=== PATIENT | female | born 1990 | race Caucasian/White ===

== ENCOUNTER 2024-04-08 21:05 | Inpatient (IN) | payer BC, MEDICARE ==
[~2024-04-08] VITALS: Ht 167.6 cm; Wt 83.5 kg
[2024-04-08 21:16] VITALS: O2SAT 98
[2024-04-08] MEDS: ACETAMINOPHEN 1000MG/100ML 100 ML IV ONE (22:15)
[2024-04-08 23:14] LABS: HEMOGLOBIN. 11.5 g/dL (12.0-16.0); MEAN CORPUSCULAR HEMOGLOBIN 29.7 pg (28.0-32.0); MEAN CORPUSCULAR HGB CONC 33.8 g/dL (31.0-37.0); MEAN CORPUSCULAR VOLUME 87.9 fL (81.0-99.0); MEAN PLATELET VOLUME 6.1 fl (7.4-10.4); PLATELET 422 x1000/uL (130-400); RED BLOOD CELL COUNT 3.86 mill/uL (4.2-5.4); RED CELL DISTRIBUTION WIDTH 16.7 % (11.6-14.6)
[2024-04-08 23:17] LABS: CHLORIDE 113 mEq/L (98-107); SODIUM 141 mEq/L (136-145)
[2024-04-08 23:18] LABS: CARBON DIOXIDE 21 mEq/L (21-32)
[2024-04-08 23:19] LABS: CALCIUM 7.7 mg/dL (8.7-10.4)
[2024-04-08 23:21] LABS: DIFFERENTIAL COMMENT 1
[2024-04-08 23:23] LABS: CREATININE 0.5 mg/dL (0.6-1.0); GLUCOSE 231 mg/dL (70-105); HCG SCREEN NEGATIVE
[2024-04-08 23:24] LABS: UREA NITROGEN BLOOD 6 mg/dL (9-23)
[2024-04-08 23:32] LABS: ANISOCYTOSIS 1+; PLATELET ESTIMATE INCREASED
[2024-04-08 23:39] LABS: POTASSIUM 2.8 mEq/L (3.5-5.1)
[2024-04-09 00:03] LABS: ALANINE AMINOTRANSFERASE 37 IU/L (10-49); ALBUMIN 3.6 g/dL (3.2-4.8); ASPARTATE AMINOTRANSFERASE 67 IU/L (<34); BILIRUBIN TOTAL 0.3 mg/dL (0.1-1.0); PROTEIN TOTAL 6.2 g/dL (6.0-8.3)
[2024-04-09 00:12] LABS: BILIRUBIN DIRECT < 0.1 mg/dL (<=3.0)
[2024-04-09 00:22] LABS: INR 0.9; PARTIAL THROMBOPLASTIN TIME 24.5 sec (23.4-31.0); PROTHROMBIN TIME 10.3 sec (9.6-11.0)
[2024-04-09] MEDS: BACITRACIN 14GM TUBE TOP ONE (01:57)
[2024-04-09] MEDS: TETANUS, DIPHTHERIA, PERTUSSIS VAC/PF 0.5ML (>10YR OLD) IM ONE (01:58)
[2024-04-09] MEDS ORDERED: POTASSIUM CHLORIDE 20MEQ TABLET SR PO NR (05:00)
[2024-04-09] MEDS: SODIUM CHLORIDE 0.9% 1,000 ML IV ONE (05:00)
[2024-04-09] MEDS: KCL 20MEQ/100ML PREMIX 100 ML IV ONE (05:00)
[2024-04-09] MEDS: POTASSIUM CHLORIDE 20MEQ TABLET SR PO NR ×2 (05:21→07:45)
[2024-04-09 06:12] VITALS: BP 112/66; PULSE 87; RESP 18; TEMP 36.8072
[2024-04-09] MEDS ORDERED: IOHEXOL-350 100 ML BOTTLE ONE (07:09)
[2024-04-09] MEDS ORDERED: IPRATROPIUM/ALBUTEROL 0.5-3(2.5)MG/3ML NEB HHN PRN (07:45)
[2024-04-09] MEDS ORDERED: ONDANSETRON HCL 4MG/2ML INJ IV PRN (07:45)
[2024-04-09] MEDS ORDERED: MAGNESIUM/ALUMINUM HYDROXIDE/SIMETHICONE 30ML UDC PO PRN (07:45)
[2024-04-09] MEDS ORDERED: DOCUSATE SODIUM 100MG CAPSULE PO PRN (07:45)
[2024-04-09] MEDS ORDERED: CLONIDINE 0.1MG TABLET PO PRN (07:45)
[2024-04-09] MEDS ORDERED: POTASSIUM CHLORIDE 20MEQ TABLET SR PO SCH (09:00)
[2024-04-09] MEDS: ENOXAPARIN 40MG/0.4ML SYR SUBCUT SCH (09:00)
[2024-04-09] MEDS: KCL 20MEQ/100ML PREMIX 100 ML IV SCH (09:00)
[2024-04-09 10:03] LABS: HEMATOCRIT. 32.5 % (36.0-48.0); HEMOGLOBIN. 10.5 g/dL (12.0-16.0); LYMPHOCYTES % 9.7 % (20.0-50.0); MEAN CORPUSCULAR HEMOGLOBIN 28.7 pg (28.0-32.0); MEAN CORPUSCULAR HGB CONC 32.4 g/dL (31.0-37.0); MEAN CORPUSCULAR VOLUME 88.7 fL (81.0-99.0); MEAN PLATELET VOLUME 6.3 fl (7.4-10.4); MONOCYTES % 9.4 % (2.0-8.0); NEUTROPHILS % 80.9 % (40.0-76.0); PLATELET 369 x1000/uL (130-400); RED BLOOD CELL COUNT 3.66 mill/uL (4.2-5.4); RED CELL DISTRIBUTION WIDTH 16.7 % (11.6-14.6); WHITE BLOOD COUNT 12.8 x1000/uL (4.5-11.0)
[2024-04-09 10:16] LABS: CARBON DIOXIDE 23 mEq/L (21-32); CHLORIDE 105 mEq/L (98-107); POTASSIUM 3.8 mEq/L (3.5-5.1); SODIUM 136 mEq/L (136-145)
[2024-04-09 10:17] LABS: CALCIUM 8.8 mg/dL (8.7-10.4)
[2024-04-09 10:22] LABS: CREATININE 0.6 mg/dL (0.6-1.0); GLUCOSE 256 mg/dL (70-105); UREA NITROGEN BLOOD 6 mg/dL (9-23)
[2024-04-09] MEDS ORDERED: DEXTROSE 50% WATER 50ML SYRINGE IV PRN (10:45)
[2024-04-09 12:00] VITALS: BP 122/72; PULSE 83; RESP 19; TEMP 36.55848; O2SAT 99
[2024-04-09] MEDS: BLOOD SUGAR DIAGNOSTIC STRIP TEST SCH (12:20)
[2024-04-09] MEDS: INSULIN LISPRO 100 UNITS/ML SUBCUT SCH (12:50)
[2024-04-09 13:29] LABS: POTASSIUM 3.8 mEq/L (3.5-5.1)
[2024-04-09] MEDS ORDERED: NALOXONE HCL 0.4MG/ML VIAL IV PRN (14:15)
[2024-04-09 16:00] VITALS: BP 120/74; PULSE 80; RESP 18; TEMP 36.61404; O2SAT 98
[2024-04-09 20:00] VITALS: BP 129/70; PULSE 103; RESP 19; TEMP 37.44744; O2SAT 100
[2024-04-09] MEDS: FAMOTIDINE 20MG TABLET PO SCH (20:55)
[2024-04-09] MEDS: OLANZAPINE 5MG TABLET PO SCH (20:55)
[2024-04-10] VITALS: BP 136/79; PULSE 82; RESP 20; TEMP 37.55856; O2SAT 99
[2024-04-10 01:50] LABS: POTASSIUM 3.6 mEq/L (3.5-5.1)
[2024-04-10 04:00] VITALS: BP 128/74; PULSE 90; RESP 18; TEMP 36.78072; O2SAT 99
[2024-04-10] MEDS: HYDROCODONE/ACETAMINOPHEN 5/325MG TABLET PO PRN (07:37)
[2024-04-10 08:00] VITALS: BP 130/76; PULSE 80; RESP 16; TEMP 36.28068; O2SAT 98
[2024-04-10 12:00] VITALS: BP 113/72; PULSE 77; RESP 18; TEMP 36.16956; O2SAT 97
[2024-04-10 16:00] VITALS: BP 127/72; PULSE 70; RESP 18; TEMP 36.6696; TEMP 36.66960; O2SAT 100
== END 2024-04-10 19:00 | disposition left against medical advice (07) | DRG 948 ==
LOC: ER 21:05 → 6WST 04-09 02:10
PROVIDERS: ADMIT Internal Medicine; ATTEND Internal Medicine
DX: G89.11 Acute pain due to trauma (principal); Z59.00 Homelessness unspecified; E87.6 Hypokalemia; E16.2 Hypoglycemia, unspecified; M54.2 Cervicalgia; D72.829 Elevated white blood cell count, unspecified; D63.8 Anemia in other chronic diseases classified elsewhere; K43.9 Ventral hernia without obstruction or gangrene; Z53.29 Procedure and treatment not carried out because of patient's decision for other reasons; F41.9 Anxiety disorder, unspecified; F32.A Depression, unspecified; R44.1 Visual hallucinations; M54.9 Dorsalgia, unspecified; V89.2XXA Person injured in unspecified motor-vehicle accident, traffic, initial encounter; Y93.9 Activity, unspecified; Y92.9 Unspecified place or not applicable; Y99.9 Unspecified external cause status
CPT/HCPCS: 36415; 71045; 71260; 74177; 80048; 80076; 82962; 83036; 83735; 84132; 84703; 85025; 97162; 97166; 99285; J1650; J1815; J3480; J7030; Q9967; J0131